=== PATIENT | male | born 1965 | race Caucasian/White ===

== ENCOUNTER 2021-03-20 16:29 | Emergency (ER) | payer OTHER ==
[~2021-03-20] VITALS: Ht 180.3 cm; Wt 95.3 kg
--- NOTE | 2021-03-20 17:17 | NUR ---
Patient is alert, Ox4, for discharged to home. Written and verbal after care instructions given to patient. Patient verbalizes understanding & compliance of instructions. Stressed follow up with primary doctor or return to ER for worsening s/s. Patient left ER in stable condition & steady gait.
== END 2021-03-20 17:17 | disposition home or self-care (01) ==
LOC: ER 16:33
DX: S01.81XA Laceration without foreign body of other part of head, initial encounter (principal); W21.07XA Struck by softball, initial encounter; Y93.64 Activity, baseball; Y92.838 Other recreation area as the place of occurrence of the external cause; Y99.8 Other external cause status; F41.9 Anxiety disorder, unspecified
CPT/HCPCS: A4217; A4663